=== PATIENT | male | born 1955 | race Caucasian/White ===

== ENCOUNTER 2017-01-09 13:05 | Day surgery (SDC) | payer OTHER ==
[~2017-01-09] VITALS: Ht 177.8 cm; Wt 86.2 kg
[~2017-01-09 13:05] MED LIST: 0.9% Sodium Chloride 1,000 ML IV PRN; AMOX500C2 PO; FLUT16SP NS; HYDR1TAB85 PO; MELO15TA14 PO; NEOM10SO8 OT; Sodium Chloride LOK Flush 10 mL Syringe IV PRN; TIZA4TABA PO; TRAZ-151 PO; fentaNYL-PF 50 mCg/mL 2 mL Inj IVPUSH PRN
[2017-01-09 13:23] VITALS: BP 199/90; PULSE 88; RESP 14; O2SAT 90
[2017-01-09 14:17] VITALS: BP 114/81; PULSE 90; RESP 14; O2SAT 93
[2017-01-09 14:27] VITALS: BP 118/82; PULSE 99; RESP 14; O2SAT 93
--- NOTE | 2017-01-09 14:32 | ENDO ---
[address] [address] ENDOSCOPY PROCEDURE PATIENT: YONI ANDERSON : 1955 MR#: [id number] ADMIT: 01/09/2017 JOB ID: [id number] DATE OF SERVICE: 01/09/2017 PRIMARY PROVIDER: Phil Walden MD. PROCEDURE: Colonoscopy with hot snare polypectomy. INDICATIONS: A 61-year-old male with a personal history of colon polyps and a family history of colon cancer, returning for surveillance. EQUIPMENT: [id number]. SEDATION: 1. Versed 5 mg. 2. Fentanyl 100 mcg. COMPLICATIONS: None identified. BOWEL PREPARATION: Suboptimal to fair. There were a few areas that we just could not fully cleanse in spite of irrigation secondary to retained fibrous debris that would clog the scope. PROCEDURE INFORMATION: After the risks and benefits were explained, written and verbal informed consent was obtained. The patient was brought into the endoscopy suite and placed into the left lateral decubitus position. Sedation was achieved as above. A digital rectal examination accomplished. No significant pathology appreciated. The scope was introduced into the rectum and advanced under direct visualization to the level of the cecum, as identified by the appendiceal orifice and ileocecal valve. The scope was slowly withdrawn to carefully examine the mucosa for any defects or lesions. Retroflexed views were accomplished in the rectum. The colon was decompressed. Scope removed from the patient who tolerated the procedure well. FINDINGS: Prep conditions as above. At around the hepatic flexure there was a 5 to maybe 6 mm polyp removed with hot snare. Within the limitations of the bowel prep, no other pathology appreciated including retroflexed views from within the rectum. ENDOSCOPIC DIAGNOSES: 1. Colon polyp. 2. Suboptimal prep. RECOMMENDATIONS: 1. Await histopathology. 2. Considering polyp history and family history with the prep conditions today, I would recommend a repeat exam in 2-1/2 years rather than waiting the full five.
[2017-01-09 14:37] VITALS: BP 120/78; PULSE 92; RESP 14; O2SAT 93
--- NOTE | 2017-01-11 10:58 | PATH ---
SURGICAL PATHOLOGY Attending Physician:Eda William CASE STATUS: Signed Out PATIENT NAME: YONI ANDERSON PID: [id number] : 1955 DATE COLLECTED:01/09/2017 00:00 SPECIMEN: Colon, Biopsy CLINICAL HISTORY: PHX OF POLYPS 1). HEPATIC FLEXURE POLYP X1 FINAL DIAGNOSIS: 1.HEPATIC FLEXURE POLYP: TUBULAR ADENOMA. ICD10 CODE D12.3 GROSS DESCRIPTION: The specimen is received in one formalin filled container labeled with the patient's name, sublabeled "hepatic flexure polyp" and consists of a 0.3 x 0.2 x 0.2 CM portion of tissue which is entirely submitted in one cassette. 01/10/2017 DAC MICRO DESCRIPTION: See diagnosis. ICD-9 CODES: CPT CODES: 1: 39666 Electronically Signed Out Jose J Hart MD [facility] [address], [place] [address] Technical component performed at [facility], [address] [place] [address] Ave[address], [place], [address]
== END 2017-01-09 23:59 | disposition home or self-care (01) ==
LOC: END 13:05
PROVIDERS: ATTEND Internal Medicine Gastroenterology
DX: Z12.11 Encounter for screening for malignant neoplasm of colon (principal); D12.2 Benign neoplasm of ascending colon; Z86.010 Personal history of colon polyps; Z80.0 Family history of malignant neoplasm of digestive organs; M19.90 Unspecified osteoarthritis, unspecified site
CPT/HCPCS: 45385; 88305; 99153; G0500; J2250; J3010; J7030